=== PATIENT | male | born 1950 | race Asian ===

== ENCOUNTER 2019-12-30 14:12 | Inpatient (IN) | payer MEDICARE, OTHER ==
[2019-12-30 14:49] LABS: BASOPHILS # (AUTO) 0.1 10^3/uL (0.0-0.1); BASOPHILS % (AUTO) 1.5 %; EOSINOPHILS % (AUTO) 0.1 %; HGB - HEMOGLOBIN 14.7 g/dL (14.0-18.0); LYMPHOCYTES % (AUTO) 24.3 %; MEAN CORPUSCULAR HEMOGLOBIN 33.8 pg (27.0-31.0); MEAN CORPUSCULAR HGB CONC 32.6 g/dL (32.0-36.0); MEAN CORPUSCULAR VOLUME 103.7 fL (80.0-94.0); MEAN PLATELET VOLUME 11.5 fL (7.4-11.4); MONOCYTES # (AUTO) 0.9 10^3/uL (0.0-1.0); MONOCYTES % (AUTO) 10.8 %; NEUTROPHILS # (AUTO) 5.1 10^3/uL (1.5-6.6); NEUTROPHILS % (AUTO) 62.9 %; PLT - PLATELET COUNT 213 10^3/uL (130-450); RED BLOOD COUNT 4.35 10^6/uL (4.70-6.10); RED CELL DISTRIBUTION WIDTH 13.8 % (12.0-15.0); WHITE BLOOD COUNT 8.2 x10^3/uL (4.8-10.8)
--- NOTE | 2019-12-30 14:51 | XRAY Report ---
Reason: Chest pain Procedure Date: 12/30/2019 Accession Number: [id number] / [id number] Procedure: XR - Chest 1 View X-Ray CPT Code: 01168 Final Report FULL RESULT: EXAM: CHEST RADIOGRAPHY EXAM DATE: 12/30/2019 02:30 PM. CLINICAL HISTORY: Chest pain. COMPARISON: None. TECHNIQUE: 1 view. FINDINGS: Lungs/Pleura: Trace right pleural effusion. No definite left effusion. Otherwise clear. No consolidation or pneumothorax. Mediastinum: Within exam limitations, the cardiomediastinal contour is normal. Upper lobe vessels not distended. Other: Degenerative changes. IMPRESSION: Trace right pleural effusion. RADIA
[2019-12-30 15:03] LABS: ALBUMIN 4.6 g/dL (3.2-5.5); ALBUMIN/GLOBULIN RATIO 1.5 (1.0-2.2); BILIRUBIN,TOTAL 2.4 mg/dL (0.2-1.0); CALCIUM 9.3 mg/dL (8.5-10.3); TOTAL PROTEIN 7.6 g/dL (6.7-8.2)
[2019-12-30] MEDS ORDERED: diltiaZEM INJ 5 MG/ML VIAL IVP STA (15:36)
--- NOTE | 2019-12-30 15:39 | ED Physician Documentation ---
History of Present Illness - Stated complaint Stated Complaint: SOA - Chief complaint Chief Complaint: Cardiac - History obtained from History obtained from: Patient, Family - History of Present Illness Pain level max: 0 Pain level now: 0 Improved by: Nothing Worsened by: Nothing - Additonal information Additional information: 69-year-old male presents to the emergency department with intermittent palpitations for the last 6 to 8 months. He states over the past 2 weeks that he has had some mild shortness of breath with exertion. He just returned from [facility]. He saw his doctor today who was concerned about atrial fibrillation, ordered an EKG and sent the patient here. Patient currently is not having chest pain, shortness of breath or any other symptoms. He states he does feel like his heart is beating faster than usual. He is on citalopram at home for anxiety. No cardiac history. Review of Systems Constitutional: denies: Fever, Chills Ears: denies: Ear pain Nose: denies: Rhinorrhea / runny nose, Congestion Throat: denies: Sore throat Cardiac: reports: Palpitations. denies: Chest pain / pressure Respiratory: denies: Cough GI: denies: Nausea, Vomiting Skin: denies: Rash Musculoskeletal: denies: Neck pain, Back pain Neurologic: denies: Headache PD PAST MEDICAL HISTORY - Past Medical History Past Medical History: Yes Psych: Anxiety - Past Surgical History Past Surgical History: No - Present Medications Home Medications: Ambulatory Orders Medication Instructions Recorded Confirmed Citalopram [CeleXA] 10 mg PO DAILY 12/30/19 12/30/19 - Allergies Allergies/Adverse Reactions: Allergies Allergy/AdvReac Type Severity Reaction Status Date / Time No Known Drug Allergies Allergy Verified 12/30/19 14:24 - Living Situation Living Situation: reports: With family Living Arrangement: reports: At home - Social History Does the pt smoke?: No Does the pt drink ETOH?: Yes Does the pt have substance abuse?: No - Family History Family history: reports: Non contributory PD ED PE NORMAL - Vitals Vital signs reviewed: Yes - General General: Alert and oriented X 3, No acute distress, Well developed/nourished - HEENT HEENT: PERRL, Moist mucous membranes - Neck Neck: Supple, no meningeal sign - Cardiac Cardiac: Other (Irregular, tachycardic) - Respiratory Respiratory: No respiratory distress, Clear bilaterally - Abdomen Abdomen: Soft, Non tender, Non distended - Derm Derm: Warm and dry, No rash - Extremities Extremities: No edema, No calf tenderness / cord - Neuro Neuro: Alert and oriented X 3 - Psych Psych: Normal mood, Normal affect Results - Vitals Vitals: Vital Signs - 24 hr 12/30/19 12/30/19 12/30/19 14:17 15:32 15:52 Temperature 36.3 C L 36.8 C Heart Rate 134 H 124 H 124 H Respiratory 18 20 18 Rate Blood Pressure 127/102 H 132/113 H 125/99 H O2 Saturation 98 97 96 12/30/19 17:11 Temperature Heart Rate 122 H Respiratory 22 Rate Blood Pressure 124/100 H O2 Saturation 98 Oxygen O2 Source Room air - EKG (time done) 1439 Rate: Rate (enter#) (132) Rhythm: Sinus tachycardia (, poss flutter with 2:1) [place]: Normal Intervals: Normal VT QRS: Normal Ischemia: Non specific changes Compare to prior EKG: Old EKG unavailable - Labs Labs: Laboratory Tests 12/30/19 12/30/19 12/30/19 14:46 14:46 14:46 WBC 8.2 RBC 4.35 L Hgb 14.7 Hct 45.1 MCV 103.7 H MCH 33.8 H MCHC 32.6 RDW 13.8 Plt Count 213 MPV 11.5 H Neut # (Auto) 5.1 Lymph # (Auto) 2.0 [place]ion # (Auto) 0.9 Eos # (Auto) 0.0 Baso # (Auto) 0.1 Absolute Nucleated RBC 0.00 Nucleated RBC % 0.0 Sodium 139 Potassium 4.3 Chloride 102 Carbon Dioxide 23 Anion Gap 14.0 H BUN 20 Creatinine 1.0 Estimated GFR (MDRD) 75 L Glucose 131 H Calcium 9.3 Total Bilirubin 2.4 H AST 79 H ALT 89 H Alkaline Phosphatase 58 Troponin I High Sens 28.2 H* Total Protein 7.6 Albumin 4.6 Globulin 3.0 Albumin/Globulin Ratio 1.5 Lipase 30 12/30/19 17:14 WBC RBC Hgb Hct MCV MCH MCHC RDW Plt Count MPV Neut # (Auto) Lymph # (Auto) Clarion # (Auto) Eos # (Auto) Baso # (Auto) Absolute Nucleated RBC Nucleated RBC % Sodium Potassium Chloride Carbon Dioxide Anion Gap BUN Creatinine Estimated GFR (MDRD) Glucose Calcium Total Bilirubin AST ALT Alkaline Phosphatase Troponin I High Sens 28.8 H* Total Protein Albumin Globulin Albumin/Globulin Ratio Lipase - Rads (name of study) cxr Radiology: Prelim report reviewed, EMP read contemporaneously, See rad report (Trace right pleural effusion) CT pulmonary angiogram Radiology: Prelim report reviewed, EMP read contemporaneously, See rad report PD MEDICAL DECISION MAKING - ED course Complexity details: reviewed results, re-evaluated patient, considered differential, d/w patient, d/w cruise consultant ED course: 69-year-old male with new onset atrial fibrillation versus atrial flutter. Appears to be more consistent with atrial fibrillation after given diltiazem. His high-sensitivity troponin is mildly elevated, likely rate related. Placed on diltiazem drip. We will admit the patient for further care. Discussed the case with Dr. Morgan, hospitalist who accepts This document was made in part using voice recognition software. While efforts are made to proofread this document, sound alike and grammatical errors may occur. Departure - Departure Disposition: ED Place in Observation Clinical Impression: New onset a-fib, Atrial fibrillation with rapid ventricular response Condition: Stable Discharge Date/Time: 12/30/19 18:07
[2019-12-30] MEDS ORDERED: IOVERSOL 320 100 ML VIAL IVP ONE ×2 (15:50→16:13)
--- NOTE | 2019-12-30 16:39 | CT Report ---
Reason: tachycardia, R pleural effusion, recent travel Procedure Date: 12/30/2019 Accession Number: [id number] / [id number] Procedure: CT - ANGIO CHEST W/WO CPT Code: Final Report FULL RESULT: EXAM: CT ANGIOGRAM CHEST EXAM DATE: 12/30/2019 04:05 PM. CLINICAL HISTORY: Tachycardia, R pleural effusion, recent travel. COMPARISON: None. TECHNIQUE: Routine helical imaging was performed through the chest in the pulmonary arterial phase. IV Contrast: 67 cc OPTIRAY 320. Reconstructions: Coronal 3-D MIP reconstructions. Sagittal and coronal. In accordance with CT protocol optimization, one or more of the following dose reduction techniques were utilized for this exam: automated exposure control, adjustment of mA and/or KV based on patient size, or use of iterative reconstructive technique. FINDINGS: Pulmonary Arteries: Diagnostic quality: Suboptimal through the segmental arteries, due to patient respiratory motion artifact limiting evaluation.. No evidence for acute or chronic pulmonary emboli. RV/LV is within normal limits. There is no interventricular septal bowing. There is reflux of contrast material in the IVC. Lungs/Pleura: Bilateral central pulmonary groundglass opacities are seen. Moderate right and small left pleural effusion is noted. No pneumothorax. Mediastinum: Borderline cardiomegaly. No pericardial effusion. No pathologically enlarged mediastinal or hilar lymph nodes. Thoracic Aorta: Unremarkable. Upper Abdomen: Unremarkable. Other: None. IMPRESSION: 1. Study limited by patient respiratory motion artifact, however, no pulmonary thromboemboli are seen bilaterally to the level of the segmental pulmonary arteries. 2. Bilateral central pulmonary ground glass opacities may reflect mild pulmonary edema or infection. No other focal dense consolidation seen. 3. Moderate right and small left base pleural effusion. 4. Borderline cardiomegaly. RADIA
[2019-12-30] MEDS ORDERED: diltiaZEM INJ 125 MG in DEXTROSE 5% 100 ML IV STA ×2 (17:16→17:28)
[2019-12-30] MEDS ORDERED: ACETAMINOPHEN 325 MG TABLET PO PRN (17:25)
[2019-12-30] MEDS ORDERED: ONDANSETRON ODT 4 MG TABLET TL PRN (17:25)
[2019-12-30] MEDS ORDERED: ONDANSETRON 4 MG/2 ML VIAL IVP PRN (17:25)
[2019-12-30] MEDS ORDERED: diltiaZEM INJ 125 MG in DEXTROSE 5% 100 ML IV SCH (18:00)
--- NOTE | 2019-12-30 18:40 | HISTORY & PHYSICAL EXAMINATION ---
Chief Complaint - Chief Complaint Chief Complaint: palpitations, sylvester, tired x 3 weeks History of Present Illness - Admitted From Admitted From:: ER/Home - History Obtained From Records Reviewed: [facility] History obtained from: Patient and sherice Andujar Exam Limitations: none - History of Present Illness HPI Comment/Other: He is a 69-year-old white male who has no other major medical illnesses other than anxiety for which he takes an SSRI. He reluctantly admits that he drinks 3-4 drinks a day on a regular basis. He has been in [place] for the last 3 weeks and probably drank way more than that. He has been having palpitations off and on for several months. But the day before he left for [place] the palpitations started and have been nonstop. In the past few months, he would check his pulse periodically, it would be "fast" but then it was slow itself down if he calmed himself down and he thought nothing of it. While in [place], he was nauseated, had dyspnea on exertion, and had no get up and go. He would lay down and try to go to sleep at night but his heart would be racing and he would have to get up because he was coughing, congested and producing clear white frothy phlegm. He would stand up in the bathroom for half an hour to 45 minutes to catch his breath before he would try to lay down in an upright position. He denies any chest pain, pleuritic or otherwise. And no pain with exertion. He denies any antecedent viral illnesses, and has no family history of heart disease other than atrial fibrillation in his mother who at the age of 100. He had no appetite. He would just get nauseated with vague indigestion off and on. There is no change in bowel or bladder habits. He denied fever, chills. No myalgias or arthralgias. No body rashes. He came home from [place] on December 23. His last drink was a beer on December 24. He could not do anything at home because he was so exhausted and short of breath. He went and saw his primary care provider today. EKG was ordered and he had atrial fibrillation and he was sent to our emergency room. He has no history of alcohol withdrawal, tremors, sweats when he stops drinking. In the Emergency room he was seen by Dr. Andujar. Temperature was 36.3, pulse rate was 134. Blood pressure 127/102. 98% saturated on room air with a r espiratory rate of 18. He was irregularly irregular. Tachycardic. No respiratory distress with clear lungs. No edema. His EKG had a flutter with 2:1, was tachycardic. White cell count was normal, hemoglobin normal. Electrolytes normal other than a random glucose of 131. Total bili 2.4, AST 79, ALT 89. Troponin #1 is 28.2. Troponin #2 is 28.8. He is now placed in observation for rate control of new onset atrial fibrillation. History - Past Medical History Cardiovascular: reports: Hypertension Respiratory: reports: None Neuro: reports: None Endocrine/Autoimmune: reports: None GI: reports: None : reports: None Psych: reports: Anxiety Musculoskeletal: reports: None Derm: reports: None MRSA Hx?: No - Past Surgical History General: reports: Colonoscopy - Family & Social History Family History Comment/Other: Mom at age of 100. She had atrial fibrillation for 30 years. Dad at age 62 of cancer. 1 brother and 1 sister and they are healthy. His daughter is healthy other than a recent bout of C. difficile colitis. Living arrangement: At home Living Situation: With spouse/s.o. Social History Notes: He was born and [place] on [facility]. Grew up and went to [employer]. Went to the [employer]. Was in [place], flu. once, and had his daughter with that . Has not been for many many years. Met his fiance and her making plans to get . 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 But he is currently drawing up papers where he will have both his fiance and his daughter is DURABLE POWER OF TRUCK LEASING MANAGER's. He drinks 3-4 drinks on a daily basis and has done so for decades. And how why it was probably double that amount. He has no history of recreational substance abuse. He is a non-smoker. - Substance History Abuse: Recurrent use of substance despite neg consequences: Alcohol Abuse Issues: Mood Disorder, Other (Hypertension, elevated liver function studies) Dependence: Experiences withdrawal or developed tolerances: NONE - POLST Patient has POLST: No POLST Status: Full Code Meds/Allgy - Home Medications Home Medications: Ambulatory Orders Medication Instructions Recorded Confirmed Citalopram [CeleXA] 10 mg PO DAILY 12/30/19 12/30/19 - Allergies Allergies/Adverse Reactions: Allergies Allergy/AdvReac Type Severity Reaction Status Date / Time No Known Drug Allergies Allergy Verified 12/30/19 14:24 Review of Systems - Constitutional Constitutional: reports: Fatigue, Malaise, Poor appetite - Eyes Eyes: denies: Pain, Irritation, Amaurosis, Blurred vision - Ears, Nose & Throat Ears, Nose & Throat: reports: Hearing loss. denies: Nasal discharge, Sore throat, Hoarseness - Cardiovascular Cariovascular: reports: Irregular heart rate, Palpitations, Exertional dyspnea, Decr. exercise tolerance - Respiratory Respiratory: reports: Cough, Sputum production, Wheezing, Orthopnea, SOB at rest, SOB with exertion. denies: Snoring - Gastrointestinal Gastrointestinal: reports: Bloating, Poor appetite. denies: Abdominal pain, Abdominal distention, Constipation, Diarrhea, Change in bowel habits - Genitourinary Genitourinary: reports: Nocturia. denies: Dysuria, Frequency, Urgency, Hematuria - Musculoskeletal Musculoskeletal: reports: Joint pain. denies: Muscle pain, Back pain, Muscle aches, Stiffness - Integumentary Integumentary: denies: Rash, Pruritis, Lesions, Dryness - Neurological Neurological: denies: General weakness, Focal weakness, Headache, Dizziness, Memory problems, Seizures, Incoordination, Slurred speech - Psychiatric Psychiatric: reports: Anxiety. denies: Depression, Suicidal, Hallucinations - Endocrine Endocrine: denies: Polyuria, Polydypsia, Polyphagia - Hematologic/Lymphatic Hematologic/Lymphatic: denies: Anemia, Bruising, Petechiae Prior Level of Functionality: Prior to [place] he could chop a quart of wood, bring it into the house for his fireplace. Could walk and do anything he wanted to do. Since being in [place], he has had a marked reduction in exercise tolerance. But is completely independent with activities of daily living. Still pays his own bills, takes care of his own finances, drives etc. Exam - Vital Signs Reviewed Vital Signs: Yes Vital Signs: Vital Signs x48h Temp Pulse Pulse Resp BP BP Pulse Ox 12/30/19 18:12 98.1 C H 124 H 20 119/94 H 97 12/30/19 17:45 36.3 C L 122 H 14 120/97 H 96 12/30/19 17:11 122 H 22 124/100 H 98 12/30/19 15:52 124 H 18 125/99 H 96 12/30/19 15:32 36.8 C 124 H 20 132/113 H 97 12/30/19 14:17 36.3 C L 134 H 18 127/102 H 98 - Physical Exam General Appearance: positive: No acute distress, Alert, Other (Tanned white male who is 6 feet 1 inches tall and weighs 107 kg. While he is in no acute distress he says he is just really, really tired) Eyes Bilateral: positive: PERRL ENT: positive: Pharynx nml Neck: positive: No JVD. negative: Stiff neck, Carotid bruit Respiratory: positive: Chest non-tender, No respiratory distress, Rales Cardiovascular: positive: Irregularly irregular, Tachycardia. negative: Systolic murmur, Gallop/S4, Friction rub Peripheral Pulses: positive: 1+ Abdomen: positive: Non-tender, No organomegaly, Nml bowel sounds, No distention, Other (But he feels generalized discomfort when I do palpation. A 1 out of a 10.) Skin: positive: Warm, Dry, Other (Very tanned) Extremities: positive: Non-tender, Full ROM, No pedal edema Neurologic/Psychiatric: positive: Oriented x3, CN's nml (2-12), Motor nml, Sensation nml Conclusion/Plan - Problem List (1) Atrial fibrillation with rapid ventricular response Conclusion/Plan: This gentleman has been having palpitations for months. Worsened in the recent 3 weeks. The argument could be made that he has alcohol induced arrhythmia with a cardiomyopathy. Or he could have chronic atrial fibrillation that has not been detected and recent increase in abuse alcohol made it worse. I doubt he has an inherited arrhythmia such as WPW or long [place]. I am not hearing a murmur of valvular heart disease. Plan: Aim for rate control. Anticoagulation with eliquis for a month before attempting to cardiovert with him chemically or pharmacologically Rate control with Cardizem IV in the ICU. Atenolol 25 will be started and gradually increased to aim for a rate of 90s. Echo in the morning. No alcohol at all for a minimum of the next 6 weeks. Referred in the outpatient setting to EP. He is interested in seeing [facility] or [facility] EP. (2) Acute systolic heart failure Conclusion/Plan: Not confirmed yet. But strongly suspected with his history of orthopnea, clear phlegm, decreased tolerance for exertion Plan: Lasix for tonight only. Echocardiogram in the morning. If he does have a reduction in ejection fraction he would be candidate for beta- cheri, diuretic, MAGDALENE inhibitor. Again emphasized to stop drinking. (3) Elevated troponin Conclusion/Plan: Most likely due to demand ischemia. He has plateaued at 28. Recheck again at 2300. EKG without acute ST-T wave changes. (4) Hypertension Conclusion/Plan: Unclear if he has essential hypertension. Then drinking on top of that has exacerbated it. Or is it hypertension only from alcohol use. Plan: Wait and see how atenolol and Cardizem lower his blood pressure. Again, if he has a reduced ejection fraction he would be a candidate for angiotensin reducing enzyme agent, or are obtained. Beta-cheri. And diuretic. Qualifiers: Hypertension type: unspecified Qualified Code(s): I10 - Essential (primary) hypertension (5) Alcohol abuse Conclusion/Plan: He has never gone through withdrawal. His last drink was a week ago. Would just recommend starting p.o. thiamine and folate. (6) Elevated liver enzymes Conclusion/Plan: Differential diagnosis would include passive congestion from possible congestive heart failure versus alcohol like liver disease versus acute hepatitis. Plan: Hepatitis panel Abdominal ultrasound - Lab Results Lab results reviewed: Yes Fish Bones: 12/30/19 14:46 12/30/19 14:46 - Diagnostic Imaging Results Diagnostic Imaging Results: positive: Final report reviewed - EKG Results EKG Interpreted Independently: No Core Measures - Anticipated LOS I expect patient to be DC'd or transferred within 96 hours.: Yes - DVT/VTE - Prophylaxis VTE/DVT Device ordered at admit?: Yes
[2019-12-30] MEDS ORDERED: atenoloL 25 MG TABLET PO SCH (19:00)
--- NOTE | 2019-12-30 19:07 | PHARMACY PROGRESS NOTE ---
- Monitoring Indication for anticoagulation: Atrial Fibrillation Potentially interacting medications: diltiazem Risk factors for bleed: Hypertension, Age >65 - Recommendations Dosing: Anticoagulation Monitoring 12/30/19 14:46 Hgb 14.7 Hct 45.1 Last Dose Given: S&S of bleedin mg po bid Pharmacy recommendation: Continue current regime (Recommending close monitoring for signs and symptoms of bleeding; (per lexicomp Drug-drug interaction with diltiazem- patient management recommendation per lexicomp = monitor for bleeding); may consider alt drug tx as clinically appropriate)
[2019-12-30] MEDS ORDERED: FUROSEMIDE 20 MG/2 ML VIAL IVP STA (19:36)
[2019-12-30] MEDS: SODIUM CHLORIDE FLUSH 0.9% 10 ML SYRINGE IVP PRN ×2 (20:30→22:24)
[2019-12-30] MEDS: APIXABAN 5 MG TABLET PO SCH (20:30)
[2019-12-30] MEDS: THIAMINE 100 MG TABLET PO SCH (20:30)
[2019-12-30] MEDS: FOLIC ACID 1 MG TABLET PO SCH (20:30)
[2019-12-30] MEDS: CITALOPRAM 10 MG TABLET PO SCH (21:00)
[2019-12-30] MEDS ORDERED: LORazepam 1 MG TABLET PO STA (21:04)
[2019-12-30 23:34] LABS: INR 1.6 (0.8-1.2); PT - PROTHROMBIN TIME 18.2 secs (9.9-12.6)
[2019-12-31] MEDS: SODIUM CHLORIDE FLUSH 0.9% 10 ML SYRINGE IVP SCH ×3 (01:15→19:18)
[2019-12-31 05:55] LABS: BASOPHILS # (AUTO) 0.1 10^3/uL (0.0-0.1); BASOPHILS % (AUTO) 1.1 %; EOSINOPHILS % (AUTO) 0.1 %; HGB - HEMOGLOBIN 14.7 g/dL (14.0-18.0); LYMPHOCYTES # (AUTO) 1.6 10^3/uL (1.5-3.5); LYMPHOCYTES % (AUTO) 17.9 %; MEAN CORPUSCULAR HEMOGLOBIN 33.2 pg (27.0-31.0); MEAN CORPUSCULAR HGB CONC 32.2 g/dL (32.0-36.0); MEAN CORPUSCULAR VOLUME 103.2 fL (80.0-94.0); MEAN PLATELET VOLUME 11.8 fL (7.4-11.4); MONOCYTES # (AUTO) 1.2 10^3/uL (0.0-1.0); MONOCYTES % (AUTO) 13.3 %; NEUTROPHILS # (AUTO) 5.8 10^3/uL (1.5-6.6); NEUTROPHILS % (AUTO) 67.1 %; PLT - PLATELET COUNT 207 10^3/uL (130-450); RED BLOOD COUNT 4.43 10^6/uL (4.70-6.10); RED CELL DISTRIBUTION WIDTH 13.8 % (12.0-15.0); WHITE BLOOD COUNT 8.7 x10^3/uL (4.8-10.8)
[2019-12-31 06:06] LABS: ALBUMIN 4.2 g/dL (3.2-5.5); BILIRUBIN,DIRECT 0.6 mg/dL (0.1-0.5); BILIRUBIN,TOTAL 2.5 mg/dL (0.2-1.0); CALCIUM 8.9 mg/dL (8.5-10.3); CREATININE 1.3 mg/dL (0.6-1.2); TOTAL PROTEIN 7.6 g/dL (6.7-8.2)
--- NOTE | 2019-12-31 06:30 | Ultrasound Report ---
Reason: elevated lft Procedure Date: 12/31/2019 Accession Number: [id number] / [id number] Procedure: US - Abdomen Complete CPT Code: Final Report FULL RESULT: EXAM: ABDOMEN ULTRASOUND EXAM DATE: 12/31/2019 04:53 AM. CLINICAL HISTORY: Elevated lft. COMPARISON: None. TECHNIQUE: Real-time scanning was performed with static images obtained. FINDINGS: Liver: Diffusely increased in echogenicity and size measuring 18.6 cm. Main portal vein flow: Hepatopetal. Gallbladder: Diffuse wall thickening. The gallbladder is dilated. Pericholecystic fluid. No gallstones. Biliary System: Common bile duct measures 6 mm. No intrahepatic or extrahepatic ductal dilatation. Pancreas: Limited visualization of the head and body appear normal. Details not seen. Kidneys: Right: 9.8 cm longitudinally. Normal. No contour-deforming mass, stones, or hydronephrosis. Left: 10.7 cm longitudinally. Normal. No contour-deforming mass, stones, or hydronephrosis. Spleen: 11.7 cm. Normal in size and echotexture. Aorta and Inferior Vena Cava: Unremarkable. Other: Small amount of free fluid in the right upper quadrant. IMPRESSION: Findings equivocal for cholecystitis. The gallbladder is dilated with diffuse wall thickening and there is pericholecystic fluid. Negative Naidu sign. No gallstones. Right pleural effusion. RADIA
[2019-12-31] MEDS ORDERED: METOPROLOL 5 MG/5 ML VIAL IVP STA (06:55)
[2019-12-31] MEDS: SODIUM CHLORIDE FLUSH 0.9% 10 ML SYRINGE IVP PRN ×2 (07:06→19:56)
[2019-12-31] MEDS: CITALOPRAM 10 MG TABLET PO SCH (08:20)
[2019-12-31] MEDS: FOLIC ACID 1 MG TABLET PO SCH (08:20)
[2019-12-31] MEDS: THIAMINE 100 MG TABLET PO SCH (08:20)
--- NOTE | 2019-12-31 08:21 | PROVIDER PROGRESS NOTE ---
Subjective - Prog Note Date Prog Note Date: 12/31/19 - Subjective Pt reports feeling: Improved Subjective: He was short of breath yesterday evening but reports that his symptoms have resolved. Denies chest pain or palpitations. He reports no abdominal pain or nausea and vomiting. He is hungry and would like to eat. He was able to walk to the bathroom last night without any difficulty. He was transitioned off the Cardizem drip yesterday just before midnight. This morning his heart rate is back up at 114. He is in atrial flutter with a 2-1 block. He was reportedly hypoxic this morning with saturations in the high 80s. He was placed on 2 L na geovanna cannula. Saturations are now 98% on room air. Current Medications - Current Medications Current Medications: Active Medications Acetaminophen (Tylenol) 650 mg PO Q4HR PRN PRN Reason: Pain 1 to 4 Apixaban (Eliquis) 5 mg PO BID [facility] Last Admin: 12/30/19 20:30 Dose: 5 mg Atenolol (Tenormin) 50 mg PO DAILY [facility] Citalopram Hydrobromide (Celexa) 10 mg PO DAILY [facility] Last Admin: 12/30/19 21:00 Dose: 10 mg Folic Acid () 1 mg PO DAILY [facility] Last Admin: 12/30/19 20:30 Dose: 1 mg Ondansetron HCl (Zofran Inj) 4 mg IVP Q6HR PRN PRN Reason: Nausea / Vomiting Ondansetron HCl (Zofran Odt) 4 mg TL Q6HR PRN PRN Reason: Nausea / Vomiting Oxycodone HCl (Roxicodone) 5 mg PO Q4HR PRN PRN Reason: Pain 5 to 7 Sodium Chloride (Normal Saline Flush 0.9%) 10 ml IVP PRN PRN PRN Reason: NEEDED PER PROVIDER ORDERS Last Admin: 12/31/19 07:06 Dose: 10 ml Sodium Chloride (Normal Saline Flush 0.9%) 10 ml IVP 0100,0900,1700 [facility] Last Admin: 12/31/19 01:15 Dose: Not Given Thiamine HCl (Vitamin B-1) 100 mg PO DAILY [facility] Last Admin: 12/30/19 20:30 Dose: 100 mg Citalopram [CeleXA] 10 mg PO DAILY 12/30/19 Objective - Vital Signs/Intake & Output Reviewed Vital Signs: Yes Vital Signs: Vital Signs x48h Temp Pulse Pulse Resp BP BP Pulse Ox 12/31/19 07:05 112/92 H 12/31/19 07:00 117 H 20 112/92 H 96 12/31/19 06:00 117 H 24 108/95 H 97 12/31/19 05:15 117 H 18 12/31/19 05:10 117 H 27 H 12/31/19 05:07 117 H 18 110/97 H 12/31/19 05:05 117 H 19 12/31/19 05:04 116 H 41 H 110/97 H 12/31/19 05:02 116 H 29 H 12/31/19 05:01 117 H 21 110/97 H 12/31/19 05:00 117 H 117 H 27 H 110/97 H 98 12/31/19 04:55 117 H 24 12/31/19 04:50 117 H 16 12/31/19 04:45 116 H 30 H 12/31/19 04:40 116 H 24 12/31/19 04:35 116 H 23 12/31/19 04:30 117 H 21 12/31/19 04:25 117 H 22 12/31/19 04:20 117 H 20 12/31/19 04:15 117 H 19 12/31/19 04:10 117 H 25 H 12/31/19 04:05 118 H 19 12/31/19 04:01 117 H 22 114/99 H 12/31/19 04:00 36.6 C 117 H 118 H 21 114/99 H 100 12/31/19 03:55 118 H 24 12/31/19 03:50 117 H 25 H 12/31/19 03:45 116 H 22 12/31/19 03:40 117 H 21 12/31/19 03:35 117 H 23 12/31/19 03:30 116 H 30 H 12/31/19 03:25 117 H 21 12/31/19 03:20 117 H 24 12/31/19 03:15 117 H 24 12/31/19 03:10 117 H 30 H 12/31/19 03:05 117 H 27 H 12/31/19 03:01 117 H 26 H 106/93 H 12/31/19 03:00 117 H 117 H 24 106/93 H 98 02/11/20 02:55 118 H 21 12/31/19 02:50 117 H 25 H 12/31/19 02:45 117 H 29 H 12/31/19 02:40 117 H 29 H 12/31/19 02:35 113 H 23 12/31/19 02:30 117 H 24 12/31/19 02:28 117 H 28 H 107/95 H 100 12/31/19 02:25 117 H 23 12/31/19 02:21 117 H 25 H 107/95 H 12/31/19 02:20 117 H 18 12/31/19 02:15 117 H 23 12/31/19 02:10 117 H 19 12/31/19 02:08 117 H 28 H 125/106 H 12/31/19 02:07 116 H 20 12/31/19 02:05 117 H 18 12/31/19 02:01 116 H 24 111/100 H 12/31/19 02:00 117 H 22 111/100 H 100 12/31/19 01:10 77 19 12/31/19 01:05 115 H 22 12/31/19 01:01 116 H 20 100/84 H 12/31/19 01:00 86 115 H 21 100/84 H 99 12/31/19 00:55 115 H 23 12/31/19 00:50 114 H 22 12/31/19 00:45 115 H 23 12/31/19 00:40 115 H 22 12/31/19 00:35 115 H 23 12/31/19 00:30 115 H 25 H 12/31/19 00:25 114 H 24 12/31/19 00:20 76 21 Intake & Output: Intake & Output 12/28/19 12/29/19 12/30/19 12/31/19 23:59 23:59 23:59 23:59 Intake Total 86.500 1000 Output Total 425 Balance 86.500 575 - Objective General Appearance: positive: No acute distress, Alert Eyes Bilateral: positive: Normal inspection, Conjunctivae nml ENT: positive: ENT inspection nml Neck: positive: Nml inspection Respiratory: positive: No respiratory distress, Other (He is tachypneic.). negative: Wheezes, Rales, Rhonchi Cardiovascular: positive: Regular rate & rhythm, Tachycardia. negative: Extrasystoles, Bradycardia, Systolic murmur, Diastolic murmur Abdomen: positive: Nml bowel sounds, No distention, Tenderness (He reports very mild tenderness on palpation in the right upper quadrant.). negative: Guarding, Rebound Skin: positive: No rash, Warm, Dry Extremities: positive: Full ROM, Pedal edema (Trace pitting edema in bilateral lower extremities.) Neurologic/Psychiatric: positive: Oriented x3, Motor nml. negative: Disoriented to person, Disoriented to place, Disoriented to time - Lab Results Fish Bones: 12/31/19 05:24 12/31/19 05:24 Other Labs: Lab Results x24hrs 12/31/19 12/31/19 12/31/19 Range/Units 05:24 05:24 05:24 WBC 8.7 (4.8-10.8) x10^3/uL RBC 4.43 L (4.70-6.10) 10^6/uL Hgb 14.7 (14.0-18.0) g/dL Hct 45.7 (42.0-52.0) % MCV 103.2 H (80.0-94.0) fL MCH 33.2 H (27.0-31.0) pg MCHC 32.2 (32.0-36.0) g/dL RDW 13.8 (12.0-15.0) % Plt Count 207 (130-450) 10^3/uL MPV 11.8 H (7.4-11.4) fL Neut # (Auto) 5.8 (1.5-6.6) 10^3/uL Lymph # (Auto) 1.6 (1.5-3.5) 10^3/uL [place] # (Auto) 1.2 H (0.0-1.0) 10^3/uL Eos # (Auto) 0.0 (0.0-0.7) 10^3/uL Baso # (Auto) 0.1 (0.0-0.1) 10^3/uL Absolute Nucleated RBC 0.00 x10^3/uL Nucleated RBC % 0.0 /100WBC PT (9.9-12.6) secs INR (0.8-1.2) Sodium 134 L (135-145) mmol/L Potassium 4.4 (3.5-5.0) mmol/L Chloride 101 (101-111) mmol/L Carbon Dioxide 19 L (21-32) mmol/L Anion Gap 14.0 H (6-13) BUN 24 H (6-20) mg/dL Creatinine 1.3 H (0.6-1.2) mg/dL Estimated GFR (MDRD) 55 L (>89) Glucose 132 H (70-100) mg/dL Calcium 8.9 (8.5-10.3) mg/dL Total Bilirubin 2.5 H (0.2-1.0) mg/dL Direct Bilirubin 0.6 H (0.1-0.5) mg/dL AST 195 H (10-42) IU/L ALT 181 H (10-60) IU/L Alkaline Phosphatase 66 (42-121) IU/L Troponin I High Sens (2.3-19.7) ng/L B-Natriuretic Peptide 1187 H (5-100) pg/mL Total Protein 7.6 (6.7-8.2) g/dL Albumin 4.2 (3.2-5.5) g/dL Globulin 3.4 (2.1-4.2) g/dL Albumin/Globulin Ratio (1.0-2.2) Lipase (22-51) U/L Nasal Screen MRSA (PCR) (NEGATIVE) 12/30/19 12/30/19 12/30/19 Range/Units 23:20 23:20 23:20 WBC (4.8-10.8) x10^3/uL RBC (4.70-6.10) 10^6/uL Hgb (14.0-18.0) g/dL Hct (42.0-52.0) % MCV (80.0-94.0) fL MCH (27.0-31.0) pg MCHC (32.0-36.0) g/dL RDW (12.0-15.0) % Plt Count (130-450) 10^3/uL MPV (7.4-11.4) fL Neut # (Auto) (1.5-6.6) 10^3/uL Lymph # (Auto) (1.5-3.5) 10^3/uL [place] # (Auto) (0.0-1.0) 10^3/uL Eos # (Auto) (0.0-0.7) 10^3/uL Baso # (Auto) (0.0-0.1) 10^3/uL Absolute Nucleated RBC x10^3/uL Nucleated RBC % /100WBC PT 18.2 H (9.9-12.6) secs INR 1.6 H (0.8-1.2) Sodium (135-145) mmol/L Potassium (3.5-5.0) mmol/L Chloride (101-111) mmol/L Carbon Dioxide (21-32) mmol/L Anion Gap (6-13) BUN (6-20) mg/dL Creatinine (0.6-1.2) mg/dL Estimated GFR (MDRD) (>89) Glucose (70-100) mg/dL Calcium (8.5-10.3) mg/dL Total Bilirubin (0.2-1.0) mg/dL Direct Bilirubin (0.1-0.5) mg/dL AST (10-42) IU/L ALT (10-60) IU/L Alkaline Phosphatase (42-121) IU/L Troponin I High Sens 30.0 H* (2.3-19.7) ng/L B-Natriuretic Peptide 1502 H (5-100) pg/mL Total Protein (6.7-8.2) g/dL Albumin (3.2-5.5) g/dL Globulin (2.1-4.2) g/dL Albumin/Globulin Ratio (1.0-2.2) Lipase (22-51) U/L Nasal Screen MRSA (PCR) (NEGATIVE) 12/30/19 12/30/19 12/30/19 Range/Units 18:40 17:14 14:46 WBC (4.8-10.8) x10^3/uL RBC (4.70-6.10) 10^6/uL Hgb (14.0-18.0) g/dL Hct (42.0-52.0) % MCV (80.0-94.0) fL MCH (27.0-31.0) pg MCHC (32.0-36.0) g/dL RDW (12.0-15.0) % Plt Count (130-450) 10^3/uL MPV (7.4-11.4) fL Neut # (Auto) (1.5-6.6) 10^3/uL Lymph # (Auto) (1.5-3.5) 10^3/uL [place] # (Auto) (0.0-1.0) 10^3/uL Eos # (Auto) (0.0-0.7) 10^3/uL Baso # (Auto) (0.0-0.1) 10^3/uL Absolute Nucleated RBC x10^3/uL Nucleated RBC % /100WBC PT (9.9-12.6) secs INR (0.8-1.2) Sodium (135-145) mmol/L Potassium (3.5-5.0) mmol/L Chloride (101-111) mmol/L Carbon Dioxide (21-32) mmol/L Anion Gap (6-13) BUN (6-20) mg/dL Creatinine (0.6-1.2) mg/dL Estimated GFR (MDRD) (>89) Glucose (70-100) mg/dL Calcium (8.5-10.3) mg/dL Total Bilirubin (0.2-1.0) mg/dL Direct Bilirubin (0.1-0.5) mg/dL AST (10-42) IU/L ALT (10-60) IU/L Alkaline Phosphatase (42-121) IU/L Troponin I High Sens 28.8 H* 28.2 H* (2.3-19.7) ng/L B-Natriuretic Peptide (5-100) pg/mL Total Protein (6.7-8.2) g/dL Albumin (3.2-5.5) g/dL Globulin (2.1-4.2) g/dL Albumin/Globulin Ratio (1.0-2.2) Lipase (22-51) U/L Nasal Screen MRSA (PCR) NEGATIVE (NEGATIVE) 12/30/19 12/30/19 Range/Units 14:46 14:46 WBC 8.2 (4.8-10.8) x10^3/uL RBC 4.35 L (4.70-6.10) 10^6/uL Hgb 14.7 (14.0-18.0) g/dL Hct 45.1 (42.0-52.0) % MCV 103.7 H (80.0-94.0) fL MCH 33.8 H (27.0-31.0) pg MCHC 32.6 (32.0-36.0) g/dL RDW 13.8 (12.0-15.0) % Plt Count 213 (130-450) 10^3/uL MPV 11.5 H (7.4-11.4) fL Neut # (Auto) 5.1 (1.5-6.6) 10^3/uL Lymph # (Auto) 2.0 (1.5-3.5) 10^3/uL [place] # (Auto) 0.9 (0.0-1.0) 10^3/uL Eos # (Auto) 0.0 (0.0-0.7) 10^3/uL Baso # (Auto) 0.1 (0.0-0.1) 10^3/uL Absolute Nucleated RBC 0.00 x10^3/uL Nucleated RBC % 0.0 /100WBC PT (9.9-12.6) secs INR (0.8-1.2) Sodium 139 (135-145) mmol/L Potassium 4.3 (3.5-5.0) mmol/L Chloride 102 (101-111) mmol/L Carbon Dioxide 23 (21-32) mmol/L Anion Gap 14.0 H (6-13) BUN 20 (6-20) mg/dL Creatinine 1.0 (0.6-1.2) mg/dL Estimated GFR (MDRD) 75 L (>89) Glucose 131 H (70-100) mg/dL Calcium 9.3 (8.5-10.3) mg/dL Total Bilirubin 2.4 H (0.2-1.0) mg/dL Direct Bilirubin (0.1-0.5) mg/dL AST 79 H (10-42) IU/L ALT 89 H (10-60) IU/L Alkaline Phosphatase 58 (42-121) IU/L Troponin I High Sens (2.3-19.7) ng/L B-Natriuretic Peptide (5-100) pg/mL Total Protein 7.6 (6.7-8.2) g/dL Albumin 4.6 (3.2-5.5) g/dL Globulin 3.0 (2.1-4.2) g/dL Albumin/Globulin Ratio 1.5 (1.0-2.2) Lipase 30 (22-51) U/L Nasal Screen MRSA (PCR) (NEGATIVE) ABX Reporting Has patient been on IV antibiotics over the past 48 hours?: No Assessment/Plan - Problem List (1) Acute systolic heart failure Impression: This is a suspected diagnosis given his presentation. A CT of the chest was consistent with pulmonary edema. His BNP was also elevated at 1500. Risk factors include his alcohol use and possible tachyarrhythmia. An echocardiogram has been ordered and is pending. He was reportedly hypoxic last night but this morning he is saturating well on room air. He is still slightly tachypneic at rest. I will give him an extra dose of Lasix IV 40 mg. We will have him ambulate the hallways and assess his symptoms. Follow-up echocardiogram and based off of that, we may need to change his medication for appropriate goal- directed therapy. (2) Atrial flutter Impression: Yu in atrial flutter with 2-1 block. His heart is persistent at 114. He has been off the Cardizem and was started on atenolol last night. This morning I will give him a dose of IV Lopressor 5 mg. I have increased his atenolol to 50 mg daily. Continue to monitor on telemetry. A TSH has been ordered and is pending. I would like to see his heart rate less than 100 prior to discharge given he presented with acute heart failure and poorly controlled heart rate will lead to decompensation. Qualifiers: Atrial flutter type: typical Qualified Code(s): I48.3 - Typical atrial flutter (3) Acute kidney injury Impression: His creatinine is elevated this morning at 1.3 compared to 1.0 on admission. He did receive 20 mg of Lasix IV yesterday. Although he does not appear overtly hypervolemic on exam, the CT of the chest did reveal pulmonary edema and his BNP is elevated which is concerning for heart failure. He only had 625 mL of urine output despite a dose of IV Lasix yesterday. Suspect his acute kidney injury may be related to cardiorenal syndrome. We will give him another dose of IV Lasix this morning and reassess his renal function. Continue to monitor his renal output. If renal function continues to decline, will obtain a renal ultrasound, urinalysis, and urine electrolytes. (4) Elevated troponin Impression: Troponins have been flat and his EKG is without ischemic changes. This is likely secondary to his tachycardia and is demand ischemia. We will benefit from an outpatient stress test to evaluate for ischemia if he does have systolic congestive heart failure (5) Alcohol abuse Impression: Alcohol on a daily basis and his LFTs are elevated. Fortunately, the ultrasound of his liver did not suggest cirrhosis but his liver was enlarged. I discussed this with him and his . He will significantly limit his alcohol use and will likely discontinue it. He is on thiamine and folate while hospitalized. (6) Elevated liver enzymes Impression: His LFTs have increased today to nearly 200. Suspect this is likely related to congestive hepatopathy although complaint may as well be his alcohol use. His total bilirubin is also elevated as well as his direct bilirubin. The liver ultrasound did not suggest cirrhosis but his liver was enlarged with increased echogenicity. Mccracken panel has been ordered and is pending. We will continue with IV diuresis given the concern for heart failure. Continue to trend his LFTs. (7) Dilated gallbladder Impression: Ultrasound right upper quadrant revealed a dilated gallbladder with diffuse wall thickening and pericholecystic fluid. He denies symptoms and his abdominal exam is not impressive. He reports he had a HIDA scan about 10 years ago in [facility] and his ejection fraction was on the lower side at that time. Will discuss with general surgery if a repeat HIDA scan is warranted as this may just be an incidental finding. (8) Anxiety Impression: He is on Celexa at home and this will be continued.
[2019-12-31] MEDS ORDERED: FUROSEMIDE 40 MG/4 ML VIAL IVP STA (08:24)
[2019-12-31] MEDS: APIXABAN 5 MG TABLET PO SCH ×2 (08:35→20:01)
[2019-12-31] MEDS ORDERED: atenoloL 25 MG TABLET PO SCH (09:00)
--- NOTE | 2019-12-31 10:42 | PHARMACY PROGRESS NOTE ---
- Best Possible Medication History Admit Date and Time: 12/30/19 6702 Processed by: Nursing Medication History completed: Yes Patient Interview: Completed As the person ultimately responsible for medication therapy, providers are able to order a medication from an existing home medication list in [facility] via the "Reconcile Routine" prior to Confirmation of that medication by instructional support assistant. Such practice is discouraged except when the physician, in their clinical judg ment, deems that a medical need exists for a medication without regard to previous use.
[2019-12-31] MEDS ORDERED: METOPROLOL 5 MG/5 ML VIAL IVP ONE (12:00)
[2019-12-31 14:50] LABS: CALCIUM 8.5 mg/dL (8.5-10.3); CREATININE 1.1 mg/dL (0.6-1.2)
[2019-12-31] MEDS ORDERED: diltiaZEM INJ 5 MG/ML VIAL IVP ONE (18:47)
[2019-12-31] MEDS: METOPROLOL SUCCINATE 50 MG TABLET PO SCH ×2 (19:55→20:17)
[2020-01-01] MEDS: SODIUM CHLORIDE FLUSH 0.9% 10 ML SYRINGE IVP SCH ×3 (00:14→17:12)
[2020-01-01] MEDS ORDERED: LORazepam 1 MG TABLET PO STA ×2 (02:55→20:42)
[2020-01-01] MEDS ORDERED: LORazepam 1 MG TABLET ONE (03:08)
[2020-01-01] MEDS: oxyCODONE 5 MG TABLET PO PRN ×2 (03:13→21:09)
[2020-01-01] MEDS ORDERED: chlordiazePOXIDE 25 MG CAPSULE PO SCH (08:00)
[2020-01-01 08:51] LABS: BASOPHILS # (AUTO) 0.1 10^3/uL (0.0-0.1); BASOPHILS % (AUTO) 1.4 %; EOSINOPHILS % (AUTO) 0.4 %; HGB - HEMOGLOBIN 14.8 g/dL (14.0-18.0); LYMPHOCYTES # (AUTO) 2.7 10^3/uL (1.5-3.5); MEAN CORPUSCULAR HEMOGLOBIN 33.5 pg (27.0-31.0); MEAN CORPUSCULAR HGB CONC 32.5 g/dL (32.0-36.0); MEAN CORPUSCULAR VOLUME 103.2 fL (80.0-94.0); MEAN PLATELET VOLUME 11.8 fL (7.4-11.4); MONOCYTES # (AUTO) 1.1 10^3/uL (0.0-1.0); MONOCYTES % (AUTO) 13.9 %; NEUTROPHILS % (AUTO) 49.9 %; PLT - PLATELET COUNT 195 10^3/uL (130-450); RED BLOOD COUNT 4.42 10^6/uL (4.70-6.10); RED CELL DISTRIBUTION WIDTH 13.8 % (12.0-15.0); WHITE BLOOD COUNT 8.1 x10^3/uL (4.8-10.8)
[2020-01-01] MEDS ORDERED: diltiaZEM CD 120 MG CAPSULE PO SCH (09:00)
[2020-01-01] MEDS ORDERED: CITALOPRAM 10 MG TABLET PO SCH (09:00)
[2020-01-01] MEDS ORDERED: METOPROLOL SUCCINATE 50 MG TABLET PO SCH (09:00)
[2020-01-01 09:08] LABS: ALBUMIN 3.9 g/dL (3.2-5.5); ALBUMIN/GLOBULIN RATIO 1.2 (1.0-2.2); BILIRUBIN,DIRECT 0.5 mg/dL (0.1-0.5); BILIRUBIN,TOTAL 1.9 mg/dL (0.2-1.0); CALCIUM 8.9 mg/dL (8.5-10.3); MAGNESIUM 2.1 mg/dL (1.7-2.8); PHOSPHORUS 3.7 mg/dL (2.5-4.6); TOTAL PROTEIN 7.1 g/dL (6.7-8.2)
[2020-01-01 09:09] LABS: HB2 TOTAL 14.3 g/dL; HEMOGLOBIN A1C 0.54 g/dL; HEMOGLOBIN A1C % 5.6 % (4.6-6.2)
[2020-01-01] MEDS: APIXABAN 5 MG TABLET PO SCH ×2 (09:11→20:53)
[2020-01-01] MEDS: CITALOPRAM 10 MG TABLET PO SCH (09:12)
[2020-01-01] MEDS: METOPROLOL SUCCINATE 50 MG TABLET PO SCH ×2 (09:13→20:53)
[2020-01-01] MEDS: FOLIC ACID 1 MG TABLET PO SCH (09:13)
[2020-01-01] MEDS: THIAMINE 100 MG TABLET PO SCH (09:13)
[2020-01-01] MEDS: SPIRONOLACTONE 25 MG TABLET PO SCH (10:00)
[2020-01-01] MEDS: FUROSEMIDE 20 MG TABLET PO SCH (10:00)
--- NOTE | 2020-01-01 11:41 | PROVIDER PROGRESS NOTE ---
Assessment/Plan - Problem List (1) Atrial fibrillation with rapid ventricular response Assessment/Plan: He was on a Dilt iv drip then transitioned to po Dilt 60 mg x1 and an additional Dilt 10 mg iv dose x1 last night (it was after that Dilt iv push that he had a severe orthopneic spell accompanied with diaphoresis, suggesting low BP). Today he already received po Dilt CD 120 mg along with Toprol XL 50 mg and did not feel the severe SOB. Will continue to adjust meds for rate control and with borderline low BP several times, will try Dig. He has been started on Eliquis for stroke prophylaxis. (2) Atrial flutter Assessment/Plan: This is typically a rhythm with difficult to control rate. Will adjust HR slowing meds. Continue telemetry No DCh home yet today. (3) Acute systolic heart failure Assessment/Plan: He still had severe orthopnea at 0300 this morning. The etiology could be tachycardda-induced cardiomyopathy or alcoholic cardiomyopathy or due to underlying CAD, which will still need W/U aftyer DCh, by a Offal Worker. Continue new po Toprol, start Spironolactone today and will have to stagger MAGDALENE start due to low BP intermittently since he is here. Will continue bid diuretic still today and work on controlling rapid HR. For these reasons (rapid HR and orthopnea) he is not ready for DCh today. I discussed all the above with him at length and fiance was on the phone as well. (4) Alcohol abuse Assessment/Plan: His last alcohol intake was 6 days ago, confirmed in the phone call with his fiance. Otherwise, she described, that he usually has a drink of alcohol every single day for many years. He did admit to this. He has elevated INR, macrocytosis on CBC and elevated LFTs, ALT consistent with alcoholic liver disease, possibly worsened with passive congestion Thiamine daily was started. Abstinence was discussed. If he has an alcoholic cardiomyopathy, this could resolve with abstinence and CHF treatment. (5) Elevated LFTs Assessment/Plan: His admission INR was elevated, consistent with poor synthetic functionb of liver, eitherr from passive congestion (longstanding) or chronic alcohol abuse. In addition the AST and ALT went up since just yesterday. Will start scheduled diuretic (Lasix and Spironolactone). Alcohol abstinence was also discussed with pt and his fiance was on the telephone listening. (6) Hyponatremia Assessment/Plan: He has hypervolemic hyponatremia, indicating free water excess. Continue loop diuretic Change his Regular diet to a Low sodium (2g/d) and fluid restricted (2000cc/d) diet Follow I's and O's (7) Pulmonary HTN Assessment/Plan: Likley from his cardiomyopathy, since the RV is dilated as well. An acute PE was ruled out by CTA chest. Continue management as above for CHF, An outpt sleep eval will be advised as well. (8) Anxiety Assessment/Plan: His Celexa will continue. - Current Meds Current Meds: Current Medications Generic Name Dose Route Start Last Admin Trade Name Freq PRN Reason Stop Dose Admin Apixaban 5 mg 12/30/19 21:00 01/01/20 09:11 Eliquis PO 5 mg BID [facility] Administration Citalopram Hydrobromide 10 mg 12/30/19 20:38 01/01/20 09:12 Celexa PO 10 mg DAILY [facility] Administration Diltiazem HCl 120 mg 01/01/20 09:00 01/01/20 09:13 Cardizem Cd PO 120 mg DAILY [facility] Administration Folic Acid 1 mg 12/30/19 19:36 01/01/20 09:13 PO 1 mg DAILY [facility] Administration Furosemide 20 mg 01/01/20 10:00 01/01/20 10:00 Lasix PO 20 mg DAILY [facility] Administration Metoprolol Succinate 50 mg 12/31/19 19:00 01/01/20 09:13 Toprol Xl PO 50 mg BID [facility] Administration Oxycodone HCl 5 mg 12/30/19 17:25 01/01/20 03:13 Roxicodone PO 5 mg Q4HR PRN Administration Pain 5 to 7 Sodium Chloride 10 ml 12/30/19 17:25 12/31/19 19:56 Normal Saline Flush 0.9% IVP 10 ml PRN PRN Administration NEEDED PER PROVIDER ORDERS Sodium Chloride 10 ml 12/31/19 01:00 01/01/20 09:13 Normal Saline Flush 0.9% IVP 10 ml 0100,0900,1700 [facility] Administration Spironolactone 25 mg 01/01/20 10:00 01/01/20 10:00 Aldactone PO 25 mg DAILY [facility] Administration Thiamine HCl 100 mg 12/30/19 19:35 01/01/20 09:13 Vitamin B-1 PO 100 mg DAILY [facility] Administration - Lab Result Fish Bone Diagrams: 01/01/20 08:41 01/01/20 08:41 - Additional Planning My Orders: My Active Orders 01/01/20 10:00 Furosemide [Lasix] 20 mg PO DAILY Spironolactone [Aldactone] 25 mg PO DAILY 01/01/20 14:00 FUROSEMIDE INJ 20mg VIAL [LASIX INJ 20mg VIAL] 20 mg IVP ONCE ONE 01/01/20 22:00 Enalapril [Vasotec] 2.5 mg PO 2200 01/01/20 Lunch DIET [Low Sodium Diet] [DIET] Subjective - Subjective Patient Reports: Resting Comfortably, Shortness of Breath, Other (Had severe orthopnea with panic at 0300) Objective Vital Signs: Vital Signs - 24 hr 12/31/19 12/31/19 12/31/19 13:00 13:23 16:48 Temperature 36.6 C 36.7 C Heart Rate Heart Rate [ 115 H 115 H Monitoring electrodes] Respiratory 14 23 Rate Blood Pressure 106/85 H Blood Pressure 106/85 H 109/93 H [Right Brachial artery] O2 Saturation 97 97 12/31/19 12/31/19 12/31/19 19:56 20:03 21:00 Temperature 36.6 C Heart Rate Heart Rate [ 117 H 118 H Monitoring electrodes] Respiratory 23 23 Rate Blood Pressure 108/91 H Blood Pressure 98/82 H 102/86 H [Right Brachial artery] O2 Saturation 97 96 01/01/20 01/01/20 01/01/20 00:00 00:12 01:00 Temperature 36.6 C Heart Rate Heart Rate [ 118 H 117 H Monitoring electrodes] Respiratory 12 19 Rate Blood Pressure 109/97 H Blood Pressure 109/97 H 113/99 H [Right Brachial artery] O2 Saturation 96 95 01/01/20 01/01/20 01/01/20 03:00 04:00 05:00 Temperature Heart Rate Heart Rate [ 117 H 95 115 H Monitoring electrodes] Respiratory 21 25 H 17 Rate Blood Pressure Blood Pressure 104/93 H 99/87 H 104/78 [Right Brachial artery] O2 Saturation 96 92 93 01/01/20 01/01/20 01/01/20 08:27 09:00 10:00 Temperature 36.1 C L Heart Rate 115 H Heart Rate [ 116 H 117 H Monitoring electrodes] Respiratory 17 26 H 18 Rate Blood Pressure Blood Pressure 123/92 H 113/88 H [Right Brachial artery] O2 Saturation 98 97 96 01/01/20 01/01/20 10:15 11:00 Temperature Heart Rate 117 H Heart Rate [ 118 H Monitoring electrodes] Respiratory 24 Rate Blood Pressure Blood Pressure 109/78 [Right Brachial artery] O2 Saturation 96 Oxygen O2 Source Room air I&O (Last 24 Hrs): Intake and Output Totals x24h 12/30/19 12/31/19 01/01/20 23:59 23:59 23:59 Intake Total 87.000 2140 550 Output Total 1350 450 Balance 87.000 790 100 General: Alert, Oriented x3 HEENT: Mucous membr. moist/pink Neck: Supple, No JVD Neuro: Alert, Non Focal Cardiovascular: Regular rate, No murmurs Respiratory: Breath sounds nml Abdomen: Normal bowel sounds, Soft Extremities: No edema - Results Results: Laboratory Results WBC 8.1 x10^3/uL (4.8-10.8) 01/01/20 08:41 RBC 4.42 10^6/uL (4.70-6.10) L 01/01/20 08:41 Hgb 14.8 g/dL (14.0-18.0) 01/01/20 08:41 Hct 45.6 % (42.0-52.0) 01/01/20 08:41 MCV 103.2 fL (80.0-94.0) H 01/01/20 08:41 MCH 33.5 pg (27.0-31.0) H 01/01/20 08:41 MCHC 32.5 g/dL (32.0-36.0) 01/01/20 08:41 RDW 13.8 % (12.0-15.0) 01/01/20 08:41 Plt Count 195 10^3/uL (130-450) 01/01/20 08:41 MPV 11.8 fL (7.4-11.4) H 01/01/20 08:41 Neut # (Auto) 4.0 10^3/uL (1.5-6.6) 01/01/20 08:41 Lymph # (Auto) 2.7 10^3/uL (1.5-3.5) 01/01/20 08:41 [place] # (Auto) 1.1 10^3/uL (0.0-1.0) H 01/01/20 08:41 Eos # (Auto) 0.0 10^3/uL (0.0-0.7) 01/01/20 08:41 Baso # (Auto) 0.1 10^3/uL (0.0-0.1) 01/01/20 08:41 Absolute Nucleated RBC 0.00 x10^3/uL 01/01/20 08:41 Nucleated RBC % 0.0 /100WBC 01/01/20 08:41 PT 18.2 secs (9.9-12.6) H 12/30/19 23:20 INR 1.6 (0.8-1.2) H 12/30/19 23:20 Sodium 134 mmol/L (135-145) L 01/01/20 08:41 Potassium 4.2 mmol/L (3.5-5.0) 01/01/20 08:41 Chloride 101 mmol/L (101-111) 01/01/20 08:41 Carbon Dioxide 20 mmol/L (21-32) L 01/01/20 08:41 Anion Gap 13.0 (6-13) 01/01/20 08:41 BUN 28 mg/dL (6-20) H 01/01/20 08:41 Creatinine 1.0 mg/dL (0.6-1.2) 01/01/20 08:41 Estimated GFR (MDRD) 75 (>89) L 01/01/20 08:41 Glucose 124 mg/dL (70-100) H 01/01/20 08:41 Glycated Hemoglobin 5.6 % (4.6-6.2) 01/01/20 08:41 Estim Average Glucose 114 (70-100) H 01/01/20 08:41 Calcium 8.9 mg/dL (8.5-10.3) 01/01/20 08:41 Phosphorus 3.7 mg/dL (2.5-4.6) 01/01/20 08:41 Magnesium 2.1 mg/dL (1.7-2.8) 01/01/20 08:41 Total Bilirubin 1.9 mg/dL (0.2-1.0) H 01/01/20 08:41 Direct Bilirubin 0.5 mg/dL (0.1-0.5) 01/01/20 08:41 AST 280 IU/L (10-42) H 01/01/20 08:41 ALT 299 IU/L (10-60) H 01/01/20 08:41 Alkaline Phosphatase 68 IU/L (42-121) 01/01/20 08:41 Troponin I High Sens 30.0 ng/L (2.3-19.7) H* 12/30/19 23:20 B-Natriuretic Peptide 1605 pg/mL (5-100) H 01/01/20 08:41 Total Protein 7.1 g/dL (6.7-8.2) 01/01/20 08:41 Albumin 3.9 g/dL (3.2-5.5) 01/01/20 08:41 Globulin 3.2 g/dL (2.1-4.2) 01/01/20 08:41 Albumin/Globulin Ratio 1.2 (1.0-2.2) 01/01/20 08:41 Lipase 30 U/L (22-51) 12/30/19 14:46 TSH 4.35 uIU/mL (0.34-5.60) 12/31/19 08:47 Nasal Screen MRSA (PCR) NEGATIVE (NEGATIVE) 12/30/19 18:40
--- NOTE | 2020-01-01 12:02 | ADVANCE CARE PLANNING NOTE ---
Advance Care Planning - Planning Encounter Date: 01/01/20 Time: 11:00 Purpose: To discuss new Dx of CHF and new onset of Afib with RVR. Parties in Attendance: I spoke to the patient in his room, his RN Han Dumont was present, and his fiance was on the phone during the entire discussion. Decisional Capacity of the Patient: He has full decisional capacilty. His fiance provided the details of his Hx of alcohol intake. 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 He and his fiance just went to [place] and he noticed marked orthopnea there. The fianc describes that he has had alcohol intake every day of his life for the many past years and she is known him for 3 years. The patient does admit to this. Since being admitted with A. fib with RVR the patient is frustrated that there has been only minimal improvement in his rapid heart rate and also that he still had orthopnea severely last night. Objective/Medical Story: 69-year-old white male with remote history of hypertension, previously on lisinopril but not in the past 8 years, history of alcohol abuse, intake daily for over a decade, history of anxiety for which he takes Celexa. He presented with several weeks of PÉREZ, mild leg edema, severe orthopnea and was found to be in new A. fib with RVR and new systolic heart failure found on Echo yesterday. He is eager to be discharged or be sent to a hospital with a House Rn/EP. I described the management of both the A. fib with RVR and the systolic heart failure. Occasionally A. fib is hard to control (especially when there is atrial flutter) and he may need transfer for further management. Since he still has orthopnea, I do not recommend a discharge home yet. Goals of Care: He wants everything done and wants the best of care. He will want a House Rn in [place] or [place], he stated. Plan: Remain inpatient. Adjust meds for CHF (continue B-cheri and loop diuretic, start MAGDALENE and Spironolactone) and rapid Afib (continue B-cheri, and stop Diltiazem if Dig will control the HR, since the iv Dilt caused marked SOB, possibly from its neg inotropic effects). If HR cannot be controlled by the next day, possible transfer to a hospital with higher level of care and Cardiology/EP. If he can be DCh safely tomorrow, he must be compliant with all his meds, have a refferal to a House Rn for further testing and med adjustments, and he must stop alcohol intake. He agreed to all the above. Code Status: Attempt Resuscitation Time spent on advance care plannin min
[2020-01-01 12:42] LABS: HEPATITIS A IGM NON-REACTIVE (NON-REACTIVE); HEPATITIS B SURFACE ANTIGEN NON-REACTIVE (NON-REACTIVE); HEPATITIS C ANTIBODY NON-REACTIVE (NON-REACTIVE)
[2020-01-01] MEDS ORDERED: DIGOXIN 500 MCG/2 ML AMP IVP ONE (13:32)
[2020-01-01] MEDS ORDERED: FUROSEMIDE 20 MG/2 ML VIAL IVP ONE (14:00)
[2020-01-01] MEDS ORDERED: ENALAPRIL 5 MG TABLET PO SCH (22:00)
[2020-01-02] MEDS: SODIUM CHLORIDE FLUSH 0.9% 10 ML SYRINGE IVP SCH ×2 (01:16→08:41)
[2020-01-02 05:09] LABS: ALBUMIN 3.4 g/dL (3.2-5.5); ALBUMIN/GLOBULIN RATIO 1.2 (1.0-2.2); BILIRUBIN,TOTAL 1.4 mg/dL (0.2-1.0); CALCIUM 8.5 mg/dL (8.5-10.3); CREATININE 1.1 mg/dL (0.6-1.2); TOTAL PROTEIN 6.3 g/dL (6.7-8.2)
[2020-01-02 08:03] VITALS: BP 102/70
[2020-01-02] MEDS: CITALOPRAM 10 MG TABLET PO SCH (08:41)
[2020-01-02] MEDS: FOLIC ACID 1 MG TABLET PO SCH (08:41)
[2020-01-02] MEDS: SPIRONOLACTONE 25 MG TABLET PO SCH (08:41)
[2020-01-02] MEDS: APIXABAN 5 MG TABLET PO SCH (08:41)
[2020-01-02] MEDS: THIAMINE 100 MG TABLET PO SCH (08:41)
[2020-01-02] MEDS: FUROSEMIDE 20 MG TABLET PO SCH (08:41)
[2020-01-02] MEDS ORDERED: DIGOXIN 125 MCG TABLET PO SCH (09:00)
[2020-01-02] MEDS ORDERED: METOPROLOL SUCCINATE 50 MG TABLET PO SCH (09:00)
--- NOTE | 2020-01-02 10:25 | Discharge Plan ---
Discharge Plan Problem Reviewed?: Yes Disposition: Home, Self Care Condition: Stable Prescriptions: Apixaban [Eliquis] 5 mg PO BID #60 tablet Digoxin [Lanoxin] 125 mcg PO DAILY #30 tablet Enalapril [Vasotec] 2.5 mg PO 2200 #15 tablet Furosemide [Lasix] 20 mg PO DAILY #30 tablet Metoprolol Succinate [Toprol Xl] 75 mg PO BID #90 tablet Spironolactone [Aldactone] 25 mg PO DAILY #30 tablet Thiamine [Vitamin B-1] 100 mg PO DAILY #30 tablet Diet: Low Sodium Activity Restrictions: Activity as Tolerated Shower Restrictions: No Driving Restrictions: No Instruction Topics: Metoprolol extended-release tablets, Digoxin tablets or capsules, Heart Failure, AFL/Afib Health Concerns: You were admitted to the hospital because of shortness of breath, found to be in a very rapid heart rate, in new onset of A. fib, and you have new diagnosis of congestive heart failure. Your medicines have been newly started for heart rate control and heart failure treatment and the prescriptions sent electronically to [facility]. Please keep taking these medications faithfully. Please stop drinking alcohol as we discussed. You need a referral to a Well Puller from your PCP for further adjustment of medications and further heart testing like stress test and possible electrophysiology consultation. With your new diagnosis, you qualify for outpatient Cardiac Rehab and Heart failure classes. A staff member from our [facility] will reach out to you to attend, after you are cleared to do so by your Well Puller. Plan of Treatment: As above. Care Goals: Improvement in symptoms and stabilization are the goals. Assessment: Patient understands and is in agreement with the plan. Additional Instructions or Follow Up instructions: If you have new or worsening symptoms, call your PCP or Well Puller for guidance or come to the ER. Follow-Up Care: [facility] - Cardiac, [facility] - CHF Classes No Smoking: If you smoke, Please STOP! Call for help. Follow-up with: Michael Bazzi MD [Primary Care Provider] -
[2020-01-02 10:31] LABS: FOLATE 16.03 ng/mL (5.90 - >24.8)
--- NOTE | 2020-01-02 10:40 | DISCHARGE SUMMARY ---
Discharge Summary Admit Date: 12/30/19 Discharge Date: 01/02/20 Discharging Provider: Dr Jennifer Jones Primary Care Provider: Dr Dutch Bazzi Code Status: Attempt Resuscitation Condition at Discharge: Stable Discharge Disposition: 01 Home, Self Care - DIAGNOSES Admission Diagnoses: (1) Atrial fibrillation with rapid ventricular response (2) Acute systolic heart failure (3) Elevated troponin (4) Hypertension (5) Alcohol abuse (6) Elevated liver enzymes Discharge Diagnoses with Status of Each Condition: See below - HPI History of Present Illness: The admission H&P of Dr. Carlota Morgan: He is a 69-year-old white male who has no other major medical illnesses other than anxiety for which he takes an SSRI. He reluctantly admits that he drinks 3-4 drinks a day on a regular basis. He has been in [place] for the last 3 weeks and probably drank way more than that. He has been having palpitations off and on for several months. But the day before he left for [place] the palpitations started and have been nonstop. In the past few months, he would check his pulse periodically, it would be "fast" but then it was slow itself down if he calmed himself down and he thought nothing of it. While in [place], he was nauseated, had dyspnea on exertion, and had no get up and go. He would lay down and try to go to sleep at night but his heart would be racing and he would have to get up because he was coughing, congested and producing clear white frothy phlegm. He would stand up in the bathroom for half an hour to 45 minutes to catch his breath before he would try to lay down in an upright position. He denies any chest pain, pleuritic or otherwise. And no pain with exertion. He denies any antecedent viral illnesses, and has no family history of heart disease other than atrial fibrillation in his mother who at the age of 100. He had no appetite. He would just get nauseated with vague indigestion off and on. There is no change in bowel or bladder habits. He denied fever, chills. No myalgias or arthralgias. No body rashes. He came home from [place] on December 23. His last drink was a beer on December 24. He could not do anything at home because he was so exhausted and short of breath. He went and saw his primary care provider today. EKG was ordered and he had atrial fibrillation and he was sent to our emergency room. He has no history of alcohol withdrawal, tremors, sweats when he stops drinking. In the Emergency room he was seen by Dr. Andujar. Temperature was 36.3, pulse rate was 134. Blood pressure 127/102. 98% saturated on room air with a respiratory rate of 18. He was irregularly irregular. Tachycardic. No respiratory distress with clear lungs. No edema. His EKG had a flutter with 2:1, was tachycardic. White cell count was normal, hemoglobin normal. Electrolytes normal other than a random glucose of 131. Total bili 2.4, AST 79, ALT 89. Troponin #1 is 28.2. Troponin #2 is 28.8. He was put into Observation for rate control. - HOSPITAL COURSE Hospital Course: (1) Atrial fibrillation with rapid ventricular response His heart rate did not decrease with iv med boluses and he was admitted to full inpatient status and moved to the ICU and started on a Diltiazem drip. He was on a Dilt iv drip for a day then transitioned to po Dilt 60 mg then to start Dilt CD 240 mg and he needed additional Dilt 10 mg iv dose. After that last Dilt iv Toprol XL 50 mg and Dig iv was used instead and he did not feel the severe SOB. Finally his HR dropped to 80 at rest using Dig orally and Toprol XL 75 mg bid. He was also started on Eliquis for stroke prophylaxis. At discharge, the Eliquis was not covered by his health insurance and it was changed to Xarelto 20 mg daily with dinner. He promised to be compliant with taking all his new meds. He was told he needs Cardiology (and possible EP) follow-up, which will need to be arranged by his PCP. (2) Atrial flutter His telemetry showed runs of Aflutter, actually predominant over Afib. This is typically a rhythm with difficult to control rate. (3) Acute systolic heart failure His BNP was 1500. His hs-troponins were elevated minimally at 28, 28, 30 and in a flat pattern not consistent with an acute ME. An Echo was done that showed LVEF of 15-20%, very dilated RV with poor RV function, and severe mitral and tricuspid regurgitation. The etiology of the systolic failure could be tachycardia-induced cardiomyopathy or alcoholic cardiomyopathy or due to unknown underlying CAD, which will still need work-up after DCh, by a Career Development Counselor. He had good diuresis with iv bid Lasix which eliminated his orthopnea and he was transitioned to oral Lasix. He had also been started on Spironolactone, Toprol XL and nightly Enalapril, to stagger his meds due to low BP, and discharged on these. (4) Alcohol abuse His last alcohol intake was about 5 days before this admission, confirmed with his fiance. Otherwise, she described, that he usually has a drink of alcohol every single day for many years, and he did admit to this. He had elevated INR, macrocytosis on his CBC and elevated LFTs, all consistent with alcoholic liver disease, possibly worsened with passive congestion. Thiamine daily was started and he was discharged on this. Abstinence from alcohol was discussed repeatedly and he stated he would comply. (5) Elevated LFTs His admission INR was elevated at 1.6, consistent with poor synthetic function of the liver, from either longstanding passive congestion, or (more likely) from chronic alcohol abuse. As his diuresis progresssed his LFTs had slight improvement. He had an abdominal ultrasound which showed a dilated gallbladder but no gallstones, he had an enlarged liver that had increased echogenicity. There were trace areas of ascites seen. (6) Hyponatremia He presented in hypervolemic hyponatremia, indicating free water excess. The loop diuretic continued and a low salt,plus fluid restriction was added. The 12/31/19 Na of 132, improved to 138 at discharge. (7) Pulmonary HTN PA pressure was 53 mmHg. This was likely to be from his cardiomyopathy, since the RV is dilated as well. An acute PE was ruled out by CTA chest. An outpatient sleep evaluation would be advised as well. (8) Anxiety His Celexa will continued while here. (9) Insomnia He was prescribed 7 tablets of Ativan 1 mg po qhs prn insomnia at discharge. - ALLERGIES Allergies/Adverse Reactions: Allergies Allergy/AdvReac Type Severity Reaction Status Date / Time No Known Drug Allergies Allergy Verified 12/30/19 14:24 - MEDICATIONS Home Medications: Ambulatory Orders Medication Instructions Recorded Confirmed Citalopram [CeleXA] 10 mg PO DAILY 12/30/19 12/30/19 Citalopram [CeleXA] 10 mg PO DAILY tablet 01/02/20 Digoxin [Lanoxin] 125 mcg PO DAILY #30 tablet 01/02/20 Enalapril [Vasotec] 2.5 mg PO 2200 #15 tablet 01/02/20 Furosemide [Lasix] 20 mg PO DAILY #30 tablet 01/02/20 Lorazepam [Ativan] 1 mg PO QPM PRN #7 tablet 01/02/20 Metoprolol Succinate [Toprol Xl] 75 mg PO BID #90 tablet 01/02/20 Rivaroxaban [Xarelto] 20 mg PO 1800 #30 tablet 01/02/20 Spironolactone [Aldactone] 25 mg PO DAILY #30 tablet 01/02/20 Thiamine [Vitamin B-1] 100 mg PO DAILY #30 tablet 01/02/20 - PHYSICAL EXAM AT DISCHARGE General Appearance: positive: No acute distress, Alert Eyes Bilateral: positive: Normal inspection, EOMI ENT: positive: ENT inspection nml, No signs of dehydration Neck: positive: Nml inspection, No JVD Respiratory: positive: No respiratory distress, Breath sounds nml Cardiovascular: positive: Other (Irreg, 2/6 syst murmur) Abdomen: positive: Non-tender, No distention Skin: positive: Color nml Extremities: positive: Non-tender, No pedal edema Neurologic/Psychiatric: positive: Oriented x3, Other (Non-focal) - LABS Result Diagrams: 01/01/20 08:41 01/02/20 04:15 - DIAGNOSTIC IMAGING Diagnostic Imaging Results: Final report reviewed - FOLLOW UP Follow Up: See PCP next week to get referral to a Career Development Counselor. - TIME SPENT Time Spent in Discharge (Minutes): 60
== END 2020-01-02 13:26 | disposition home or self-care (01) | DRG 308 ==
LOC: ED 14:12 → ICU 17:25 → OBSVTOIN 12-31 10:12 → MS2 01-02 01:09
PROVIDERS: ADMIT Specialist; ATTEND Internal Medicine
DX: I48.3 Typical atrial flutter (principal); I48.92 Unspecified atrial flutter; N17.9 Acute kidney failure, unspecified; R79.89 Other specified abnormal findings of blood chemistry; R74.0 Nonspecific elevation of levels of transaminase and lactic acid dehydrogenase [LDH]; I10 Essential (primary) hypertension; R09.02 Hypoxemia; R16.0 Hepatomegaly, not elsewhere classified; I50.21 Acute systolic (congestive) heart failure; F10.14 Alcohol abuse with alcohol-induced mood disorder; F10.188 Alcohol abuse with other alcohol-induced disorder; R18.8 Other ascites; E87.1 Hypo-osmolality and hyponatremia; I11.0 Hypertensive heart disease with heart failure; K70.9 Alcoholic liver disease, unspecified; I48.91 Unspecified atrial fibrillation; I42.6 Alcoholic cardiomyopathy; I27.22 Pulmonary hypertension due to left heart disease; I08.1 Rheumatic disorders of both mitral and tricuspid valves; I25.10 Atherosclerotic heart disease of native coronary artery without angina pectoris; F41.9 Anxiety disorder, unspecified; K82.8 Other specified diseases of gallbladder; G47.00 Insomnia, unspecified; I95.2 Hypotension due to drugs; R06.02 Shortness of breath; T46.1X5A Adverse effect of calcium-channel blockers, initial encounter; Y92.230 Patient room in hospital as the place of occurrence of the external cause; Z79.899 Other long term (current) drug therapy; Z82.49 Family history of ischemic heart disease and other diseases of the circulatory system
CPT/HCPCS: 36415; 71045; 71275; 76700; 80048; 80053; 80074; 80076; 82607; 82746; 83036; 83690; 83735; 83880; 84100; 84443; 84484; 85025; 85610; 87150; 93005; 93306; 94761; 96365; 96366; 96375; 96376; 99284; 99285; A9270; G0378; J8499; Q9967

== ENCOUNTER 2020-05-21 11:42 | Outpatient (CLI) | payer MEDICARE, OTHER ==
--- NOTE | 2020-05-21 17:42 | XRAY Report ---
PROCEDURE: Elbow 3 View RT INDICATIONS: CONTUSION R ELBOW W/BORSITIS TECHNIQUE: 3 views of the elbow were acquired. COMPARISON: None FINDINGS: Bones: No fractures or dislocations. No suspicious bony lesions. Large olecranon bone spur at the t riceps attachment. Soft tissues: No elbow joint effusion. No suspicious soft tissue calcifications. IMPRESSION: 1. No fracture. No acute osseous lesion. If there is continued clinical concern for pathology, then r epeat plain film radiographs (7-10 days) or advanced imaging (CT, MR, bone scan) should be considered for further evaluation. 2. Large olecranon bone spur. Reviewed by: Amy Chang MD, PhD on 05/21/2020 5:41 PM PDT Approved by: Amy Chang MD, PhD on 05/21/2020 5:41 PM PDT Station ID: [id number]
== END 2020-05-21 11:43 | disposition home or self-care (01) ==
LOC: DI 11:42
PROVIDERS: ATTEND Family Medicine
DX: M77.8 Other enthesopathies, not elsewhere classified (principal)

== ENCOUNTER 2024-04-17 13:57 | Outpatient (CLI) | payer MEDICARE, OTHER ==
[~2024-04-17 13:57] MED LIST: GADOTERATE MEGLUMINE 10 MMOL/20 ML VIAL ONE; GADOTERATE MEGLUMINE 5 MMOL/10 ML VIAL ONE
[2024-04-17] MEDS: GADOTERATE MEGLUMINE 10 MMOL/20 ML VIAL IVP ONE (17:32)
[2024-04-17] MEDS: GADOTERATE MEGLUMINE 5 MMOL/10 ML VIAL IVP ONE (17:33)
--- NOTE | 2024-04-17 17:55 | MRI Report ---
PROCEDURE: Pelvis W/WO INDICATIONS: ELEVATED PSA CONTRAST: clariscan 20.8ml TECHNIQUE: Coronal ultra fast SE, axial T1 FSE with fat saturation, 3-plane nonbreath-hold T2 FSE. After the ad ministration of contrast, dynamic axial, delayed axial and coronal ultra fast GE or 2-D spoiled GE wi th fat saturation through the pelvis. Optional diffusion weighted imaging and ADC may be performed. COMPARISON: None. FINDINGS: Image quality: Diffusion weighted and dynamic contrast enhanced images are diagnostic. Prostate: Gland size is 4.0 x 3.6 x 4.2 cm; ellipsoid gland volume is 31 mL. Prostate lesions: Lesion 1: Location: Anterior, midline transition zone, mid gland, on axial series 5, image 12 and sagital serie s 7, image 14. Size: 1.4 x 0.9 cm. T2W signal: Partially encapsulated nodule DWI signal: Markedly hyperintense ADC signal: Markedly hypointense Enhancement: Yes Extracapsular extension: No. No neurovascular involvement. PI-RADS score: 3 Genitourinary system: Bladder wall thickness is normal. Distal ureters are non distended. Bowel and peritoneum: No pathologic free pelvic fluid. Inferior colon and small bowel loops are nor mal in caliber. Colonic diverticulosis without evidence of diverticulitis. Nodes and vessels: No pelvic or inguinal adenopathy by size criteria. Iliac vessels are normal in c aliber. Soft tissues: No inguinal hernias. Bones: Bone marrow demonstrates normal overall signal. No suspicious bony lesions. IMPRESSION: PI-RADS 3 in the anterior transition zone of the mid gland. Reviewed by: Aj Ashley MD on 04/17/2024 5:54 PM PDT Approved by: Aj Ashley MD on 04/17/2024 5:54 PM PDT Station ID: [id number]
== END 2024-04-17 13:58 | disposition home or self-care (01) ==
LOC: LAB 13:57
PROVIDERS: ATTEND Urology
DX: R97.20 Elevated prostate specific antigen [PSA] (principal); N40.2 Nodular prostate without lower urinary tract symptoms
CPT/HCPCS: 36415; 72197; 82565; A9575